=== PATIENT | male | born 1950 | race Caucasian/White ===

== ENCOUNTER 2022-02-12 14:34 | Observation (INO) | payer BC, MEDICARE, OTHER ==
[~2022-02-12] VITALS: Ht 182.9 cm; Wt 86.2 kg
[2022-02-12] MEDS ORDERED: MAALOX/LIDOCAINE/BENADRYL/NYST 30 ML BTL PO ONE (15:00)
[2022-02-12] MEDS ORDERED: ONDANSETRON HCL INJ 2MG/ML 2ML 2 MG/ML VIAL IV PRN ×3 (15:00→18:15)
[2022-02-12 15:20] LABS: BASOPHILS # (AUTO) 0.1 (0.0-0.1); BASOPHILS % 0.9 % (0.0-1.0); EOSINOPHILS # (AUTO) 0.9 (0.0-0.4); EOSINOPHILS % 8.2 % (0.0-6.0); HEMATOCRIT 43.6 % (38.2-49.6); HEMOGLOBIN 14.3 g/dL (14.0-18.0); LYMPHOCYTES # (AUTO) 2.7 (1.0-3.2); LYMPHOCYTES % 26.1 % (18.0-39.1); MEAN CORPUSCULAR HEMOGLOBIN 29.5 pg (28-32); MEAN CORPUSCULAR HGB CONC 32.8 g/dL (31-35); MEAN CORPUSCULAR VOLUME 90.1 fL (81-99); MONOCYTES % 9.9 % (4.4-11.3); NEUTROPHILS # (AUTO) 5.6 (2.1-6.9); NEUTROPHILS % 54.6 % (38.7-80.0); PLATELET COUNT 258 x10e3/uL (140-360); RED BLOOD COUNT 4.84 x10e6/uL (4.3-5.7); RED CELL DISTRIBUTION WIDTH 12.8 % (11.7-14.4)
[2022-02-12 15:37] LABS: ALBUMIN 3.6 g/dL (3.5-5.0); ALBUMIN/GLOBULIN RATIO 1.1 (0.8-2.0); ANION GAP 14.9 mmol/L (8-16); CALCIUM 9.1 mg/dL (8.4-10.2); CREATININE, SERUM 0.81 mg/dL (0.72-1.25); POTASSIUM 3.9 mmol/L (3.5-5.1)
[2022-02-12 15:38] LABS: LIPASE 14 U/L (8-78)
[2022-02-12] MEDS ORDERED: LIDOCAINE VISC 2% SOLN 15 ML UDC ONE (15:41)
[2022-02-12] MEDS ORDERED: MAGNESIUM/ALUMINUM/SIMETHICONE 30 ML UDC ONE (15:42)
[2022-02-12] MEDS ORDERED: BELLADONNA ALK/PHENOBARBITAL 5 ML UDC ONE (15:42)
[2022-02-12] MEDS ORDERED: DONNATAL/LIDOCAINE/MAALOX 30 ML SUSP PO ONE (16:00)
[2022-02-12] MEDS ORDERED: SODIUM CHLORIDE FLUSH 10 ML SYR INJ PRN (16:15)
[2022-02-12] MEDS ORDERED: ASPIRIN 81 MG CHEW TAB PO ONE (16:15)
[2022-02-12] MEDS: Morphine 4mg Syringe 4 MG/ML INJ IV PRN ×3 (17:20→21:37)
[2022-02-12] MEDS: FAMOTIDINE 20 MG TAB PO SCH (17:21)
[2022-02-12] MEDS: METRONIDAZOLE 500MG/NS 100ML 100 ML IV SCH (18:15)
[2022-02-12 18:45] VITALS: BP 146/66
[2022-02-12 19:51] VITALS: BP 134/79
[2022-02-12 21:00] VITALS: BP 134/79
[2022-02-12] MEDS: SODIUM CHLORIDE 0.9% 1000ML 1,000 ML IV SCH (21:37)
[2022-02-13] MEDS: METRONIDAZOLE 500MG/NS 100ML 100 ML IV SCH ×2 (01:40→09:52)
[2022-02-13 01:41] VITALS: BP 146/70
[2022-02-13 01:49] LABS: CREATINE KINASE MB 0.6 ng/mL (0-5.0)
[2022-02-13] MEDS: Morphine 4mg Syringe 4 MG/ML INJ IV PRN ×2 (05:27→12:10)
[2022-02-13 06:38] VITALS: BP 140/82
[2022-02-13 06:38] LABS: BASOPHILS # (AUTO) 0.1 (0.0-0.1); BASOPHILS % 1.1 % (0.0-1.0); EOSINOPHILS # (AUTO) 0.9 (0.0-0.4); EOSINOPHILS % 10.6 % (0.0-6.0); HEMATOCRIT 43.3 % (38.2-49.6); HEMOGLOBIN 13.7 g/dL (14.0-18.0); LYMPHOCYTES # (AUTO) 2.6 (1.0-3.2); LYMPHOCYTES % 28.9 % (18.0-39.1); MEAN CORPUSCULAR HEMOGLOBIN 29.2 pg (28-32); MEAN CORPUSCULAR HGB CONC 31.6 g/dL (31-35); MEAN CORPUSCULAR VOLUME 92.3 fL (81-99); MONOCYTES # (AUTO) 0.9 (0.2-0.8); MONOCYTES % 10.4 % (4.4-11.3); NEUTROPHILS # (AUTO) 4.3 (2.1-6.9); NEUTROPHILS % 48.8 % (38.7-80.0); PLATELET COUNT 231 x10e3/uL (140-360); RED BLOOD COUNT 4.69 x10e6/uL (4.3-5.7); RED CELL DISTRIBUTION WIDTH 12.9 % (11.7-14.4)
[2022-02-13 07:06] LABS: ANION GAP 15.2 mmol/L (8-16); CALCIUM 8.3 mg/dL (8.4-10.2); CREATININE, SERUM 0.95 mg/dL (0.72-1.25); POTASSIUM 4.2 mmol/L (3.5-5.1)
[2022-02-13] MEDS ORDERED: METRONIDAZOLE500 MG PO (07:19)
[2022-02-13] MEDS ORDERED: PANTOPRAZOLE SO40 MG PO (07:19)
[2022-02-13] MEDS: FAMOTIDINE 20 MG TAB PO SCH (07:30)
[2022-02-13 07:38] VITALS: BP 129/74
[2022-02-13 08:14] LABS: CREATINE KINASE MB 1.9 ng/mL (0-5.0)
[2022-02-13] MEDS: SODIUM CHLORIDE 0.9% 1000ML 1,000 ML IV SCH (09:55)
[2022-02-13 09:59] VITALS: BP 129/74
[2022-02-13 11:52] VITALS: BP 160/78
[2022-02-13] MEDS ORDERED: METRONIDAZOLE 500 MG TAB PO SCH (18:00)
== END 2022-02-13 14:30 | disposition home or self-care (01) ==
LOC: ER 14:42 → INTOOBSV 16:13 → ERHOLD 16:13 → MED/SURG 18:21
PROVIDERS: ADMIT Internal Medicine; ATTEND Internal Medicine
DX: K52.9 Noninfective gastroenteritis and colitis, unspecified (principal); R00.1 Bradycardia, unspecified; E86.0 Dehydration; I48.91 Unspecified atrial fibrillation; Z20.822 Contact with and (suspected) exposure to COVID-19
CPT/HCPCS: 36415 ×2; 74176; 80048; 80053; 82550; 82553; 83690; 84484 ×2; 85025 ×2; 93005; 93306; 94799; 96360; 96361; 99251; 99284; G0378 ×2; J2270 ×2; J2405; J7030 ×2; U0002

== ENCOUNTER 2022-03-20 12:38 | Emergency (ER) | payer MEDICARE, OTHER ==
[~2022-03-20] VITALS: Ht 365.8 cm; Wt 86.2 kg
[~2022-03-20 12:38] MED LIST: METRONIDAZOLE500 MG PO; PANTOPRAZOLE SO40 MG PO
[2022-03-20] MEDS ORDERED: DONNATAL/LIDOCAINE/MAALOX 30 ML SUSP PO ONE (13:00)
[2022-03-20 13:06] LABS: BASOPHILS # (AUTO) 0.1 (0.0-0.1); BASOPHILS % 1.3 % (0.0-1.0); EOSINOPHILS # (AUTO) 0.8 (0.0-0.4); EOSINOPHILS % 7.9 % (0.0-6.0); HEMATOCRIT 41.9 % (38.2-49.6); HEMOGLOBIN 14.1 g/dL (14.0-18.0); LYMPHOCYTES # (AUTO) 2.5 (1.0-3.2); LYMPHOCYTES % 26.3 % (18.0-39.1); MEAN CORPUSCULAR HEMOGLOBIN 29.2 pg (28-32); MEAN CORPUSCULAR HGB CONC 33.7 g/dL (31-35); MEAN CORPUSCULAR VOLUME 86.7 fL (81-99); MONOCYTES # (AUTO) 0.8 (0.2-0.8); MONOCYTES % 8.4 % (4.4-11.3); NEUTROPHILS # (AUTO) 5.3 (2.1-6.9); NEUTROPHILS % 55.8 % (38.7-80.0); PLATELET COUNT 280 x10e3/uL (140-360); RED BLOOD COUNT 4.83 x10e6/uL (4.3-5.7); RED CELL DISTRIBUTION WIDTH 13.1 % (11.7-14.4)
[2022-03-20 13:31] LABS: ALBUMIN 3.8 g/dL (3.5-5.0); ALBUMIN/GLOBULIN RATIO 1.2 (0.8-2.0); ANION GAP 15.7 mmol/L (8-16); CALCIUM 8.6 mg/dL (8.4-10.2); CREATININE, SERUM 0.86 mg/dL (0.72-1.25); POTASSIUM 3.7 mmol/L (3.5-5.1)
[2022-03-20 13:32] LABS: LIPASE 14 U/L (8-78)
[2022-03-20] MEDS ORDERED: BELLADONNA ALK/PHENOBARBITAL 5 ML UDC ONE (14:11)
[2022-03-20] MEDS ORDERED: LIDOCAINE VISC 2% SOLN 15 ML UDC ONE (14:11)
[2022-03-20] MEDS ORDERED: MAGNESIUM/ALUMINUM/SIMETHICONE 30 ML UDC ONE (14:11)
[2022-03-20] MEDS ORDERED: IOPAMIDOL 370 MG/ML 100 ML INFUS..BTL INJ ONE (14:20)
[2022-03-20] MEDS ORDERED: DIATRIZOATE MEGL/DIATRIZOA SOD 30 ML BTL PO ONE (14:20)
[2022-03-20] MEDS ORDERED: ONDANSETRON HCL INJ 2MG/ML 2ML 2 MG/ML VIAL IV STA (16:42)
[2022-03-20] MEDS ORDERED: Morphine 4mg INJECTION 4 MG/ML INJ IV ONE (16:45)
[2022-03-20] MEDS ORDERED: ONDANSETRON ODT4 MG PO (17:05)
[2022-03-20] MEDS ORDERED: PROTONIX20 MG PO (17:05)
[2022-03-20] MEDS ORDERED: DICYCLOMINE HCL20 MG PO (17:05)
[2022-03-20 18:18] VITALS: BP 146/74
== END 2022-03-20 17:30 | disposition home or self-care (01) ==
LOC: ER 12:50
DX: K29.70 Gastritis, unspecified, without bleeding (principal); R00.1 Bradycardia, unspecified; Z91.041 Radiographic dye allergy status; Z90.49 Acquired absence of other specified parts of digestive tract; Z90.89 Acquired absence of other organs
CPT/HCPCS: 36415; 74018; 74177; 80053; 83690; 84484; 85025; 93005; 99284; J2270; J2405; Q9967